=== PATIENT | male | born 1965 | race Caucasian/White ===

== ENCOUNTER 2021-08-15 03:03 | Emergency (ER) | payer OTHER ==
[2021-08-15 03:23] VITALS: BP 124/87; PULSE 102; TEMP 97.6; BMI 30.7
[2021-08-15 04:01] LABS: BASO % 0.6 % (0-2.0); EOS % 1.1 % (0-4.5); HEMATOCRIT 43.2 % (35.4-49); HEMOGLOBIN 14.8 GM/dL (11.7-16.9); INR 0.98 (0.83-1.09); LYMPH % 39.2 % (8-40); MCH 31.5 pg (25.7-33.7); MCHC 34.3 g/dl (32.0-35.9); MEAN CELL VOLUME 91.9 fl (80-96); MEAN PLT VOLUME 8.2 fl (7.5-11.1); MONO % 6.6 % (3.8-10.2); NEUT % 52.5 % (42.8-82.8); PLATELET COUNT 234 10^3/uL (134-434); PROTHROMBIN TIME (PATIENT) 11.3 SEC (9.7-13.0); WHITE BLOOD COUNT 7.3 K/mm3 (4.0-10.0)
[2021-08-15 04:03] LABS: ACTIVATED PTT 30.7 SECONDS (25.2-36.5)
[2021-08-15 04:11] LABS: CHLORIDE 106 mmol/L (98-107); SODIUM 142 mmol/L (136-145)
[2021-08-15 04:13] LABS: CALCIUM 8.6 mg/dL (8.5-10.1)
[2021-08-15 04:14] LABS: ALBUMIN 4.4 g/dl (3.4-5.0); ANION GAP 9 MMOL/L (8-16); BLOOD UREA NITROGEN 15.9 mg/dL (7-18); CO2 27 mmol/L (21-32); GLUCOSE,RANDOM 108 mg/dL (74-106)
[2021-08-15 04:17] LABS: CREATININE 0.9 mg/dL (0.55-1.3); PHOSPHOROUS 3.8 mg/dL (2.5-4.9); SGOT/AST 28 U/L (15-37); SGPT/ALT 42 U/L (13-61)
[2021-08-15 04:18] LABS: BILIRUBIN,TOTAL 0.2 mg/dL (0.2-1); TOT PROT 7.7 g/dl (6.4-8.2)
[2021-08-15 04:20] LABS: ALK PHOS 73 U/L (45-117)
[2021-08-15 04:22] LABS: N-TERMINAL BNP 19.3 pg/ml (5-125)
== END 2021-08-15 05:52 | disposition home or self-care (01) ==
LOC: JER 03:03
DX: F10.10 Alcohol abuse, uncomplicated (principal); R55 Syncope and collapse
CPT/HCPCS: 36415; 70450-TC; 71045-TC-FY; 80053; 82550; 82553; 83880; 84100; 84484; 85025; 85610; 85730; 93005; 93010; 99285-25